=== PATIENT | female | born 1995 | race Caucasian/White ===

== ENCOUNTER 2017-03-20 18:37 | Emergency (ER) | payer OTHER ==
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
[2017-03-20] MEDS ORDERED: VALIUM PO ONE (20:54)
[2017-03-20] MEDS ORDERED: PERCOCET 5/325 PO ONE (20:54)
[2017-03-20 21:25] LABS: Basophils % (Auto) 0.4 % (0.0-1.8); Eosinophils % (Auto) 0.4 % (0.0-4.3); Hematocrit 42.1 % (30.3-42.9); Hemoglobin 14.1 gm/dl (10.1-14.3); Mean Corpuscular HGB Conc 34 % (30-34); Mean Corpuscular Hemoglobin 29 pg (28-32); Mean Corpuscular Volume 85 fl (79-97); Platelet Count 205 K/mm3 (140-440); Red Blood Count 4.94 M/mm3 (3.65-5.03); Red Cell Distribution Width 13.6 % (13.2-15.2)
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
[2017-03-20 22:41] LABS: Bacteria,Urine 4+ /HPF (Negative); Bilirubin,Urine NEG (Negative); Blood,Urine NEG (Negative); Ketones,Urine 20 mg/dL (Negative); Leukocyte Esterase,Urine SM (Negative); Mucus,Urine 2+ /HPF; Nitrite,Urine POS (Negative)
[2017-03-20] MEDS ORDERED: ROCEPHIN IM STA (23:09)
[2017-03-20] MEDS ORDERED: XYLOCAINE 1% MPF 5 mL INFILTRATI ONE (23:09)
[2017-03-21 00:35] VITALS: BP 118/76
== END 2017-03-21 | disposition home or self-care (01) ==
LOC: ED 18:37
DX: S16.1XXA Strain of muscle, fascia and tendon at neck level, initial encounter (principal); S20.219A Contusion of unspecified front wall of thorax, initial encounter; G44.319 Acute post-traumatic headache, not intractable; N30.00 Acute cystitis without hematuria; F41.9 Anxiety disorder, unspecified; R80.9 Proteinuria, unspecified; M79.1 Myalgia; R93.421 Abnormal radiologic findings on diagnostic imaging of right kidney; F17.200 Nicotine dependence, unspecified, uncomplicated; Z91.040 Latex allergy status; V47.6XXA Car passenger injured in collision with fixed or stationary object in traffic accident, initial encounter; Y93.89 Activity, other specified; Y92.89 Other specified places as the place of occurrence of the external cause; Y99.8 Other external cause status
CPT/HCPCS: 36415; 70450; 71250; 72125; 72128; 81001; 84703; 85025; 87076; 87086; 87186; 96372; 99284; J0696